=== PATIENT | male | born 1970 | race African-American/Black ===

== ENCOUNTER 2018-09-15 06:47 | Day surgery (SDC) | payer OTHER ==
[~2018-09-15] VITALS: Ht 195.6 cm; Wt 105.4 kg
[2018-09-15] MEDS ORDERED: LIDOCAINE 1%-EPI 1:100K, 20ML ONE (07:02)
[2018-09-15] MEDS ORDERED: OXYMETAZOLINE NASAL SPRAY 0.05%, 15ML ONE (07:02)
[2018-09-15 07:16] VITALS: BP 143/80
[2018-09-15 07:22] VITALS: BP 143/80
[2018-09-15] MEDS ORDERED: DIAZEPAM 5 MG TABLET PO ONE (07:30)
[2018-09-15] MEDS ORDERED: LACTATED RINGERS 1,000 ML IV SCH (07:31)
[2018-09-15] MEDS ORDERED: PROPOFOL 50 ML ONE (07:39)
[2018-09-15] MEDS ORDERED: MIDAZOLAM 1 MG/ML, 2ML ONE (07:39)
[2018-09-15] MEDS ORDERED: FENTANYL PF 250 MCG/5ML ONE (07:39)
[2018-09-15] MEDS ORDERED: ONDANSETRON 2MG/ML, 2ML ONE (08:56)
[2018-09-15] MEDS ORDERED: SUCCINYLCHOLINE 20 MG/ML, 10ML ONE (08:56)
[2018-09-15] MEDS ORDERED: DEXAMETHASONE 4 MG/ML, 1ML ONE (08:56)
[2018-09-15] MEDS ORDERED: ROCURONIUM 10MG/ML,5ML ONE (08:56)
[2018-09-15] MEDS ORDERED: CEFAZOLIN 1,000 MG ONE (08:56)
[2018-09-15] MEDS ORDERED: PROMETHAZINE 25 MG/ML, 1ML IV PRN (09:30)
[2018-09-15] MEDS ORDERED: EPHEDRINE 50 MG/ML, 1ML IM PRN (09:30)
[2018-09-15] MEDS ORDERED: ONDANSETRON 2MG/ML, 2ML IV PRN (09:30)
[2018-09-15] MEDS ORDERED: MIDAZOLAM 1 MG/ML, 2ML IV PRN (09:30)
[2018-09-15] MEDS ORDERED: PROMETHAZINE 25 MG SUPP PR PRN (09:30)
[2018-09-15] MEDS ORDERED: MORPHINE SULFATE 4 MG/ML, 1ML IVPush PRN (09:30)
[2018-09-15] MEDS ORDERED: MEPERIDINE/PF 25MG/0.5ML IVPush PRN (09:30)
[2018-09-15] MEDS ORDERED: DIPHENHYDRAMINE 50 MG/ML, 1ML IVPush PRN (09:30)
[2018-09-15] MEDS ORDERED: PROMETHAZINE 12.5 MG SUPP PR PRN (09:30)
[2018-09-15] MEDS ORDERED: FENTANYL PF 100 MCG/2ML ONE (10:09)
[2018-09-15] MEDS ORDERED: OXYcodone 5 MG/5 ML ORAL.SOL UDC ONE ×2 (10:09→10:40)
[2018-09-15] MEDS: OXYcodone 5 MG/5 ML ORAL.SOL UDC PO PRN ×2 (10:10→10:42)
[2018-09-15] MEDS: FENTANYL PF 100 MCG/2ML IV PRN ×4 (10:11→10:52)
== END 2018-09-15 12:12 | disposition home or self-care (01) ==
LOC: OUT 06:47
PROVIDERS: ATTEND Otolaryngology
DX: D10.5 Benign neoplasm of other parts of oropharynx (principal); Z88.8 Allergy status to other drugs, medicaments and biological substances
CPT/HCPCS: 42800; 88305; 88331; J0330; J0690; J1100; J2250; J2405; J2704; J3010; J7120; J3490